=== PATIENT | female | born 1950 | race Caucasian/White ===

== ENCOUNTER 2023-03-01 13:05 | Emergency (ER) | payer MEDICARE ==
[2023-03-01 13:40] VITALS: BP 129/72; PULSE 64
== END 2023-03-01 14:20 | disposition home or self-care (01) ==
LOC: JP.ED 13:05
DX: S70.362A Insect bite (nonvenomous), left thigh, initial encounter (principal); E78.00 Pure hypercholesterolemia, unspecified; Z79.899 Other long term (current) drug therapy; Z88.8 Allergy status to other drugs, medicaments and biological substances; W57.XXXA Bitten or stung by nonvenomous insect and other nonvenomous arthropods, initial encounter
CPT/HCPCS: 99281